=== PATIENT | male | born 1990 | race Caucasian/White ===

== ENCOUNTER 2024-12-04 10:40 | Emergency (ER) | payer OTHER, SELFPAY ==
[2024-12-04 11:07] VITALS: BP 151/77
--- NOTE | 2024-12-04 11:07 | ED.GENMED ---
ED Provider Triage
<Freddy Wade PA-C - Last Filed: 12/04/24 11:08>
-
Patient seen by provider in Triage?: Seen in Triage
Attestation: A medical screening examination has been initiated by a qualified medical provider. Based on the assessment performed at this time, it has been determined that an emergent medical condition may exist and the patient has been informed
that further medical evaluation and possible additional diagnostic testing may be needed.
HPI: 34-year-old male presents for evaluation of sudden onset right flank pain beginning approximate 10 AM today. Multiple episodes of vomiting since onset. Pain is focal to the right flank with no radiation. No history of similar symptoms
GENERAL: Alert, writhing in pain, diaphoretic, actively vomiting
EYE: No visual abnormalities.
NECK: Trachea midline
ENT: No visible abnormalities.
LUNGS: No acute respiratory distress
NEUROLOGICAL: Alert and oriented
SKIN: Skin intact. No visible changes.
MUSCULOSKELETAL: Moving extremities normally
PSYCH: Normal and appropriate interaction.
This is a medical evaluation conducted in person to initiate diagnostic evaluation and provide initial therapeutics. Please see further documentation by the treating clinician.
History of Present Illness
<Freddy Wade PA-C - Last Filed: 12/04/24 11:08>
General
Chief Complaint: Back Pain
Time Seen by Provider: 12/04/24 11:22
<Mimi Celis PA-C - Last Filed: 12/04/24 12:58>
General
Source: patient
Exam Limitations: none
History of Present Illness
History of Present Illness:
34yoM with a history of bipolar 2 disorder presenting with his father for evaluation of flank pain. Patient reports right flank pain that began abruptly around 9am this morning. He states he was sitting at his desk working from home when the pain
started suddenly and he broke out into a sweat. Pain is stabbing in nature and severe. He denies any radiating pain although he did notice some mild right testicular discomfort early this morning which has resolved. He is also experiencing nausea
and vomiting. No prior history of the same. His urine appeared cloudy this morning before his pain started. No fevers.
Phy Exam
<Mimi Celis PA-C - Last Filed: 12/04/24 12:58>
Physical Exam
Physical Exam:
Appears uncomfortable, non-toxic
General Physical Exam
General Presentation: mild distress
General age: appears stated age
General Skin: warm and dry
General Habitus: normal
General Mental: alert
ENT Exam
ENT Exam: normocephalic
Pulmonary Exam
Pulmonary Exam: no respiratory distress
Gastrointestinal Exam
Gastrointestinal Exam: non tender, soft, non distended and other (+Mild R CVA tenderness)
Neurological Exam
Neurological Exam: alert
[place] Coma Scale
Eye Opening: Spontaneous
Verbal Response: Oriented
Motor Response: Obeys Commands
GCS Total Score: 15
Skin Exam
Skin Exam: normal color and warm/dry
Psychiatric Exam
Psychiatric Exam: normal mood/affect
Course
<Freddy Wade PA-C - Last Filed: 12/04/24 11:08>
Orders/Labs/Results
Orders:
Orders
12/04/24 11:06
0.9% Sodium Chloride 1000 ml [Nss] 1,000 ml IV BOLUS
Ketorolac [Toradol] 15 mg IV NOW STA
Ondansetron Injectable [Zofran] 4 mg IV NOW STA
12/04/24 11:07
CT Abd/pel Without Iv Or Oral Urgent
Comment:
Reason For Exam: R flank pain
12/04/24 11:15
Complete Blood Count/With Diff Urgent
Comprehensive Metabolic Panel Urgent
12/04/24 12:01
Urinalysis Reflex To Culture Urgent
Date Specimen was Collected: 12/04/24
Time Specimen was Collected: 11:58
Urine Microscopic Reflex Cult Urgent
Abnormal Lab Results
12/04/24 12/04/24
11:15 12:01
WBC 14.9 H 10^3/uL
(4.8-10.8)
MCH 32.8 H pg
(27.0-31.0)
Abs Immat Gran (auto) 0.1 H 10^3/uL
(0-0.05)
Absolute Neuts (auto) 8.5 H 10^3/uL
(1.4-6.5)
Absolute Lymphs (auto) 4.5 H 10^3/uL
(1.2-3.4)
Absolute Monos (auto) 1.1 H 10^3/uL
(0.1-0.6)
Immature Gran % 0.7 H %
(0-0.5)
Carbon Dioxide 17 L mmol/L
(22-30)
Glucose 154 H mg/dl
(70-99)
Albumin 5.6 H g/dl
(3.5-5.0)
Urine Ketones 3+ A
(Negative)
Ur Occult Blood Reflex 4+ A
(Negative)
Urine RBC 50-60 A /HPF
(0-2)
Urine Bacteria (Reflex) Few A
(Negative)
Urine Albumin (Reflex) 1+ A
(Neg - Trace)
12/04/24 11:15
12/04/24 11:15
Vital Signs
Initial and Last Documented VS:
Initial Vital Signs
Temp Pulse Resp BP Pulse Ox
98.7 F 66 18 151/77 97
12/04/24 11:07 12/04/24 11:07 12/04/24 11:07 12/04/24 11:07 12/04/24 11:07
Last Documented Vital Signs
Temp Pulse Resp BP Pulse Ox
98.7 F 69 16 148/71 98
12/04/24 11:07 12/04/24 12:39 12/04/24 12:39 12/04/24 12:39 12/04/24 12:39
Linettelt;Mimi Celis PA-C - Last Filed: 12/04/24 12:58>
Orders/Labs/Results
Orders:
Orders
12/04/24 11:06
0.9% Sodium Chloride 1000 ml [Nss] 1,000 ml IV BOLUS
Ketorolac [Toradol] 15 mg IV NOW STA
Ondansetron Injectable [Zofran] 4 mg IV NOW STA
12/04/24 11:07
CT Abd/pel Without Iv Or Oral Urgent
Comment:
Reason For Exam: R flank pain
12/04/24 11:15
Complete Blood Count/With Diff Urgent
Comprehensive Metabolic Panel Urgent
12/04/24 12:01
Urinalysis Reflex To Culture Urgent
Date Specimen was Collected: 12/04/24
Time Specimen was Collected: 11:58
Urine Microscopic Reflex Cult Urgent
Abnormal Lab Results
12/04/24 12/04/24
11:15 12:01
WBC 14.9 H 10^3/uL
(4.8-10.8)
MCH 32.8 H pg
(27.0-31.0)
Abs Immat Gran (auto) 0.1 H 10^3/uL
(0-0.05)
Absolute Neuts (auto) 8.5 H 10^3/uL
(1.4-6.5)
Absolute Lymphs (auto) 4.5 H 10^3/uL
(1.2-3.4)
Absolute Monos (auto) 1.1 H 10^3/uL
(0.1-0.6)
Immature Gran % 0.7 H %
(0-0.5)
Carbon Dioxide 17 L mmol/L
(22-30)
Glucose 154 H mg/dl
(70-99)
Albumin 5.6 H g/dl
(3.5-5.0)
Urine Ketones 3+ A
(Negative)
Ur Occult Blood Reflex 4+ A
(Negative)
Urine RBC 50-60 A /HPF
(0-2)
Urine Bacteria (Reflex) Few A
(Negative)
Urine Albumin (Reflex) 1+ A
(Neg - Trace)
12/04/24 11:15
12/04/24 11:15
Vital Signs
Initial and Last Documented VS:
Initial Vital Signs
Temp Pulse Resp BP Pulse Ox
98.7 F 66 18 151/77 97
12/04/24 11:07 12/04/24 11:07 12/04/24 11:07 12/04/24 11:07 12/04/24 11:07
Last Documented Vital Signs
Temp Pulse Resp BP Pulse Ox
98.7 F 69 16 148/71 98
12/04/24 11:07 12/04/24 12:39 12/04/24 12:39 12/04/24 12:39 12/04/24 12:39
<Mimi Celis PA-C - Last Filed: 12/04/24 12:58>
MDM/Problems Addressed
Differential Diagnosis Includes:
34yoM here with R flank pain. Started abruptly this morning. Associated with n/v and diaphoresis. Urine also appeared cloudy this morning. He is hypertensive with otherwise normal vitals. He appears uncomfortable but is non-toxic. Mild R CVA
tenderness on exam. Differential diagnosis includes but is not limited to: kidney stone, UTI, pyelonephritis, musculoskeletal
Initial ED plan: Check CBC, CMP, UA, and CT abdomen ordered. Patient received IV Zofran, Toradol, and fluid bolus prior to initial exam.
<Mimi Celis PA-C - Last Filed: 12/04/24 12:58>
*Critical Care Note
Total Time (30-74mins, 75-104mins- exclusive of procedures): Not Applicable
<Mimi Celis PA-C - Last Filed: 12/04/24 12:58>
Update Note
Update Note:
CT shows a 3 mm stone at the R UVJ with mild hydronephrosis. White count is 14, likely reactive secondary to vomiting. Creatinine 0.8. Microscopic immaturity noted on urinalysis without overt signs of infection. Pain controlled after Toradol.
No indication for hospitalization at this time. Supportive care discussed including hydration, urine straining, PRN Tylenol/ibuprofen, and Flomax. Prescriptions also provided for Zofran and oxycodone for breakthrough pain. He was advised to
follow-up closely with urology. Strict ED return precautions discussed. Patient in agreement with plan and was discharged in stable condition.
ED Attending Note
<Freddy Wade PA-C - Last Filed: 12/04/24 11:08>
-
Portions of this chart may have been created with voice recognition software.� Occasional wrong word or��sound alike� substitutions may have occurred due to the inherent limitations of voice recognition software.
Discharge Plan
Departure
Patient Disposition: Home (Routine Discharge)
Date of Disposition: 12/04/24
Time of Disposition: 12:35
Patient with high blood pressure during this ER visit?: Yes
Discharge Problem:
Calculus of distal right ureter
Instructions: Kidney stones in adults, How to Strain Your Urine
Prescriptions:
New
tamsulosin [Flomax] 0.4 mg capsule
0.4 mg PO HS Qty: 7 0RF
ondansetron 4 mg tablet,disintegrating
4 mg PO Q6H PRN (Reason: nausea and vomiting) Qty: 20 0RF
oxycodone 5 mg tablet
5 mg PO Q6H PRN (Reason: Pain) Qty: 8 0RF
Referrals:
Hasmukh Chong MD [Family Provider] -
Cyrus Walker MD [Active] -
Activity Restrictions/Additional Instructions:
Drink plenty of fluids. Take Flomax and strain your urine until stone has passed.
Take Tylenol 650mg and ibuprofen 600mg every 6 hours as needed for pain. Take oxycodone only as needed for severe breakthrough pain. Take Zofran as needed for nausea.
Please follow-up with urology. Return to the ER with any worsening symptoms, uncontrolled pain, fevers, or inability to urinate.
Interventions
Interventions:
*Risk Screen - Suicide Last Done: 12/04/24 11:07
*General Assessment Last Done: 12/04/24 11:25
*Neglect/Abuse Screening Last Done: 12/04/24 11:07
ED- Fall Risk Assessment Last Done: 12/04/24 12:45
*ED COVID-19 Vaccine History Last Done: 12/04/24 11:25
*Nursing Disposition Last Done: 12/04/24 12:45
ED-Musculoskeletal Assessment Last Done: 12/04/24 11:26
Discharge Date and Time
Discharge Date/Time: 12/04/24 12:45
Print Language: THAI
[2024-12-04] MEDS: TORADOL 15 MG IV (11:16)
[2024-12-04] MEDS: ZOFRAN 4 MG IV (11:16)
[2024-12-04] MEDS: NSS 1000 IV (11:18)
[2024-12-04 11:36] LABS: % Basophils 0.9 % (0-2); % Eosinophils 3.7 % (0-6); % Immature Granulocytes 0.7 % (0-0.5); % Lymphocytes 30.3 % (20.5-51.1); % Monocytes 7.6 % (1.7-9.3); % Neutrophils 56.8 % (42.2-75.2); Absolute Basophils 0.1 10^3/uL (0-0.2); Absolute Eosinophils 0.6 10^3/uL (0-0.7); Absolute Immature Granulocytes 0.1 10^3/uL (0-0.05); Absolute Lymphocytes 4.5 10^3/uL (1.2-3.4); Absolute Monocytes 1.1 10^3/uL (0.1-0.6); Absolute Neutrophils 8.5 10^3/uL (1.4-6.5); Hematocrit 44.2 % (39.0-52.0); Hemoglobin 15.4 g/dL (13.0-18.0); Mean Corp Hgb Conc. 34.8 g/dL (33.0-37.0); Mean Corpuscular Hgb 32.8 pg (27.0-31.0); Mean Platelet Volume 8.9 fL (7.4-10.4); Nucleated Red Blood Cells % 0 % (-); Platelet Count 379 10^3/uL (130-400); Red Cell Dist. Width 12.2 % (11.5-14.5); White Blood Cell Count 14.9 10^3/uL (4.8-10.8)
[2024-12-04 11:53] LABS: ALT (SGPT) 38 U/L (0-50); AST (SGOT) 35 U/L (17-59); Albumin 5.6 g/dl (3.5-5.0); Alkaline Phosphatase 80 U/L (38-126); Blood Urea Nitrogen 18 mg/dl (9-20); Carbon Dioxide 17 mmol/L (22-30); Chloride 101 mmol/L (98-107); Glucose 154 mg/dl (70-99); Potassium 4.3 mmol/L (3.5-5.1); Sodium 137 mmol/L (135-145); Total Bilirubin 0.9 mg/dl (0.2-1.3); eGFR > 60.00
[2024-12-04 12:11] LABS: Urine Albumin 1+ (Neg - Trace); Urine Bilirubin Negative (Negative); Urine Character Clear (Clear); Urine Color Yellow; Urine Glucose Negative (Negative); Urine Ketone 3+ (Negative); Urine Leukocyte Negative (Negative); Urine Nitrite Negative (Negative); Urine Occult Blood 4+ (Negative); Urine Specific Gravity 1.015 (<1.030); Urine Urobilinogen Negative (Neg - 1+)
[2024-12-04 12:17] LABS: Urine Mucus Moderate
[2024-12-04 12:18] LABS: Urine Bacteria Few (Negative); Urine Red Blood Cell 50-60 /HPF (0-2); Urine White Cell 0-2 /HPF (0-5)
[2024-12-04 12:39] VITALS: BP 148/71
== END 2024-12-04 12:45 | disposition home or self-care (01) ==
LOC: EMR 10:40
PROVIDERS: Physician Assistant; EMERGENCY PHYSICIAN Emergency Medicine; FAMILY PHYSICIAN Family Medicine
DX: N13.2 Hydronephrosis with renal and ureteral calculous obstruction (principal)
CPT/HCPCS: 96374; 96375; 96361; 99284; 74176; 80053; 81003; 81015; 85025